=== PATIENT | male | born 1995 | race Caucasian/White ===

== ENCOUNTER 2016-08-25 22:42 | Emergency (ER) | payer BC ==
[2016-08-26 00:11] VITALS: BP 134/81
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
== END 2016-08-25 23:38 | disposition home or self-care (01) ==
LOC: FB.ED 22:42
DX: S09.90XA Unspecified injury of head, initial encounter (principal); Y04.8XXA Assault by other bodily force, initial encounter
CPT/HCPCS: 70450; 99284

== ENCOUNTER 2018-01-24 06:24 | Emergency (ER) | payer OTHER, BC ==
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
[2018-01-24 06:42] VITALS: BP 120/101
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
== END 2018-01-24 07:50 | disposition home or self-care (01) ==
LOC: FB.ED 06:24
DX: S06.0X9A Concussion with loss of consciousness of unspecified duration, initial encounter (principal); S40.212A Abrasion of left shoulder, initial encounter; V49.49XA Driver injured in collision with other motor vehicles in traffic accident, initial encounter
CPT/HCPCS: 36415; 70450; 71045; 80048; 80305; 81001; 85025; 99284; G0480